=== PATIENT | female | born 1945 | race Caucasian/White ===

== ENCOUNTER 2024-03-30 13:59 | Outpatient (AMB) | payer MEDICARE, SELFPAY ==
--- NOTE | 2024-03-30 15:22 | AM.OFFWIN_ITS ---
Intake Vital Signs 03/30/24 15:26 Height 5 ft 7 in Weight 170 lb BMI 26.6 BP 160/90 H Blood Pressure Location Rt brachial Position Sitting Pulse 118 H Pulse Source Pulse Oximeter Pulse Oximetry (%) 97 Oxygen Delivery Method Room Air Intake Visit Reasons: [employer]/left foot swelling(lobby) Intake Note: pt is here for left foot swelling Patient Tobacco Use Status: Never used Tobacco Allergies No Known Allergies Allergy (Verified 03/30/24 15:22) Do you need a note to return to daycare/school/sports/work: No HPI HPI Comments History of Present Illness Details Patient is an 79-year-old female in today for a sick visit. Patient has a past medical history significant for AFib, dyslipidemia, hypertension. Patient is currently being followed by Cardiology at [facility]. She presents here with left foot pain x1 day. Reports that she woke up with pain over the dorsal aspect of her left foot, which is most tender over the 1st metatarsal head. Patient also has left foot edema and left LE edema, denies calf tenderness. Does have history of lower extremity edema, states she recently had her hydrochlorothiazide dosage reduced by her orthodontic technician. Patient is also chronically in AFib currently had metoprolol titrated up to 300 mg p.o. daily. Has internal pacemaker. Patient denies chest pain or shortness of breath. On physical exam patient has left foot edema and left lower extremity edema. Will order ultrasound to rule out DVT. Patient is on Eliquis. Order left foot x-ray. Will order uric acid blood draw. PFSH Social History Patient Tobacco Use Status: Never used Tobacco Review of Systems Const All systems reviewed & are unremarkable except as noted in HPI and below Denies chills, Denies fever(s) and Denies headache(s) Eyes Denies blurry vision and Denies diplopia ENT Denies vertigo, Denies dizziness, Denies headache(s) and Denies sore throat Card Denies chest pain and Denies dyspnea Resp Denies dyspnea GI Denies diarrhea, Denies nausea and Denies vomiting Musc Denies numbness, Denies tingling and Reports other (Left foot pain) Neuro Denies vertigo, Denies dizziness, Denies headache(s), Denies numbness and Denies tingling Physical Exam Const Other: Appearance: Alert.? Oriented X3.? No acute distress.? Head: Normocephalic. Neck: Normal inspection.? Neck supple.? CVS: Normal heart rate and rhythm.? Pulses normal.? Respiratory: No respiratory distress.? Breath sounds normal.? Abdomen: Soft and nontender.? Skin: Erythema over left first metatarsal head. No bruising. No drainange. Extremities: Left lower extremity edema.?+1. No calf ttp. 5/5 strength to bilateral upper and lower extremities Neuro: Oriented X 3.? No motor deficit.? No sensory deficit. CN 2-12 intact Assessment & Plan Assessment & Plan (1) Left foot pain: Comment: Obtain foot x-ray. Will draw a uric acid. Patient had ultrasound to rule out DVT. This is likely gout will give prednisone to be taken as directed. Patient has been educated on side effects of this medication. Code(s): M79.672 - Pain in left foot Plan: Take your medications as prescribed. If you were prescribed antibiotics today, it is important that you take your medication to their entirety, do not skip any doses, do not finish them early. Follow-up with your primary care provider this week. Return to the emergency department with new or worsening symptoms. Such as fevers, chills, chest pain, shortness of breath, nausea, vomiting, dizziness, headache, vision changes, lethargy In case of emergency call 911 Plan Patient will follow-up with PCP and has upcoming appointment with Cardiology. Orders: Orders Uric Acid Today M79.672 - Pain in left foot US venous duplex LE LT Today M79.89 - Other specified soft tissue disorders Medications: New prednisone 20 mg PO BID 8 tabs 0RF Coding Level of Care Code Est Pt Level 4 (89964) Diagnoses Left foot pain M79.672 Time Spent (min) 36
[2024-03-30 15:26] VITALS: BP 160/90; PULSE 118; O2SAT 97; BMI 26.6
== END 2024-03-30 16:49 | disposition home or self-care (01) ==
PROVIDERS: Visit Provider Nurse Practitioner Primary Care
DX: M79.672 Pain in left foot (principal)
CPT/HCPCS: 99214

== ENCOUNTER 2024-03-30 15:45 | Outpatient (REF) | payer MEDICARE, SELFPAY ==
--- NOTE | ~2024-03-30 | XR_ITS ---
EXAMINATION: XR FOOT, LEFT CLINICAL INFORMATION: Pain in left foot COMPARISON: None available. TECHNIQUE: AP, lateral, and oblique views of the left foot. FINDINGS: The bones are diffusely demineralized. There is question of periosteal thickening along the cortex of the shaft of the second metatarsal, fourth metatarsal and questionably the third metatarsal which could represent stress fractures. Alignment is anatomic. Mild joint space narrowing of the first metatarsophalangeal joint. There is soft tissue swelling of the dorsum of the foot. There is a small posterior plantar calcaneal spur and Achilles enthesophyte with question of small calcification near the insertion of the Achilles tendon. XR/XR foot LT min 3V IMPRESSION: Question of periosteal thickening along the cortex of the shaft of the second metatarsal, fourth metatarsal and questionably the third metatarsal which could represent stress fractures. MRI scan could be obtained for further evaluation.
--- NOTE | ~2024-03-30 | US_ITS ---
EXAMINATION: US VENOUS ULTRASOUND WITH DOPPLER LOWER EXTREMITY, LEFT CLINICAL INFORMATION: Pain COMPARISON: None available. TECHNIQUE: Ultrasound of the deep veins is performed from the hip to the calf with compression sonography and color and pulse Doppler assessment. Spectral analysis with color-flow imaging is performed. FINDINGS: There is normal venous compression and respiratory variation and augmented flow. The visualized common femoral vein, superficial femoral vein, profunda femoral vein, popliteal vein, and the trifurcation region shows no evidence of deep venous thrombosis. There is no significant popliteal fossa cyst. US/US venous duplex LE LT IMPRESSION: No DVT demonstrated in the left lower extremity.
== END 2024-03-30 15:46 | disposition home or self-care (01) ==
LOC: HO.HMGCX 15:45
PROVIDERS: PCP Internal Medicine; Visit Provider Nurse Practitioner Primary Care
DX: M79.89 Other specified soft tissue disorders (principal); M79.672 Pain in left foot
CPT/HCPCS: 73630; 93971

== ENCOUNTER 2024-03-31 10:32 | Outpatient (REF) | payer MEDICARE, SELFPAY | END 2024-03-31 10:33 | disposition home or self-care (01) | LOC: HO.HMGCLDS 10:32 | PROVIDERS: PCP Internal Medicine; Visit Provider Nurse Practitioner Primary Care | DX: M79.672 Pain in left foot (principal) | CPT/HCPCS: 36415; 84550 ==